=== PATIENT | male | born 1970 | race Caucasian/White ===

== ENCOUNTER 2018-04-28 15:14 | Emergency (ER) | payer OTHER ==
[2018-04-28] MEDS ORDERED: Lidocaine 1% w/Epinephrine 1:100K 20 ML VIAL ONE (15:21)
[2018-04-28] MEDS ORDERED: Lidocaine 1% 20 ML MDV ONE (15:29)
[2018-04-28] MEDS ORDERED: HYDROcodone/Acetaminophen 5/325 mg Tablet ONE (15:48)
[2018-04-28] MEDS ORDERED: Ibuprofen 800 MG TAB ONE (15:49)
--- NOTE | 2018-04-28 16:10 | RAD ---
RIGHT THUMB THREE VIEWS: 04/28/18 HISTORY: Injury with right thumb pain. FINDINGS/IMPRESSION: There is a radiopaque foreign body/hook in the soft tissues of the volar aspect of the distal right t humb. POS: NADEEN
[2018-04-28] MEDS ORDERED: Amoxicillin/Potassium Clav 875 MG TAB ONE (16:11)
[2018-04-28] MEDS ORDERED: Bacitracin Zinc 1 Packet ONE (16:36)
== END 2018-04-28 16:46 | disposition home or self-care (01) ==
LOC: MADERS 15:14
DX: S60.931A Unspecified superficial injury of right thumb, initial encounter (principal); Z79.899 Other long term (current) drug therapy; W26.8XXA Contact with other sharp object(s), not elsewhere classified, initial encounter
CPT/HCPCS: 64450; J2001